=== PATIENT | female | born 1970 | race Caucasian/White ===

== ENCOUNTER 2018-04-08 09:57 | Day surgery (SDC) | payer MEDICARE, OTHER ==
[~2018-04-08] VITALS: Ht 154.9 cm; Wt 46.4 kg
[~2018-04-08 09:57] MED LIST: CeFAZolin 2 GM/DEXTROSE 50 ML IV ONE; GABA-531 PO; LORA0.5T2 PO; PERCT PO; RINGERS SOLUTION,LACTATED 1,000 ML IV ONE
[2018-04-08] MEDS ORDERED: 0.9% SODIUM CHLORIDE 10 ML VIAL IVP ONE (09:58)
[2018-04-08] MEDS ORDERED: ONDANSETRON HCL 4 MG/2 ML VIAL IVP ONE (09:58)
[2018-04-08] MEDS ORDERED: FentaNYL CITRATE-PF 100 MCG/2 ML VIAL IVP ONE (09:58)
[2018-04-08] MEDS ORDERED: DEXAMETHASONE SOD PHOS 4 MG/ML VIAL IVP ONE (09:58)
[2018-04-08] MEDS ORDERED: MIDAZOLAM HCL 2 MG/2 ML VIAL IVP ONE (09:58)
[2018-04-08] MEDS ORDERED: KETAMINE HCL 50 MG/ML 10 ML VIAL IVP ONE (09:58)
[2018-04-08] MEDS ORDERED: LIDOCAINE HCL/PF 2% 5 ML VIAL IM ONE (09:58)
[2018-04-08] MEDS ORDERED: PROPOFOL 1% 20 ML VIAL IVP ONE (09:58)
[2018-04-08] MEDS ORDERED: SUCCINYLCHOLINE CHLORIDE 20 MG/ML 10 ML VIAL IVP ONE (09:58)
[2018-04-08] MEDS ORDERED: BUPIVACAINE HCL/PF 0.5% 30 ML VIAL ONE (10:54)
[2018-04-08] MEDS ORDERED: BUPIVACAINE/EPI/PF 0.5% 30 ML VIAL ONE (10:54)
[2018-04-08] MEDS ORDERED: LIDOCAINE HCL 1%/EPI 1:200,000/PF 30 ML VIAL ONE (10:54)
[2018-04-08] MEDS ORDERED: MEPERIDINE HCL/PF 25 MG/0.5 ML AMP IVP PRN (11:30)
[2018-04-08] MEDS ORDERED: HYDROmorphone 2 MG/ML SYRINGE IVP PRN (11:30)
[2018-04-08] MEDS ORDERED: FentaNYL CITRATE-PF 100 MCG/2 ML VIAL IVP PRN (11:30)
[2018-04-08] MEDS ORDERED: GUM MASTIC/STORAX/MSAL/ALCOHOL LIQUID 0.67 ML VIAL TP ONE (11:31)
[2018-04-08] MEDS ORDERED: OXYGEN THERAPY IH SCH (20:00)
== END 2018-04-08 13:25 | disposition home or self-care (01) ==
LOC: SURGERY 09:57
PROVIDERS: ATTEND Orthopaedic Surgery
DX: M50.122 Cervical disc disorder at C5-C6 level with radiculopathy (principal); F32.9 Major depressive disorder, single episode, unspecified; F41.9 Anxiety disorder, unspecified; B19.20 Unspecified viral hepatitis C without hepatic coma; G89.29 Other chronic pain; E11.9 Type 2 diabetes mellitus without complications; F17.210 Nicotine dependence, cigarettes, uncomplicated; F19.11 Other psychoactive substance abuse, in remission; F10.21 Alcohol dependence, in remission; Z72.89 Other problems related to lifestyle; Z79.891 Long term (current) use of opiate analgesic; Z98.82 Breast implant status; Z96.641 Presence of right artificial hip joint; Z79.899 Other long term (current) drug therapy; Z98.890 Other specified postprocedural states
CPT/HCPCS: 20931; 22600; 22853; C1713; J0330; J0690; J1100; J2250; J2405; J2704; J3010; J3490 ×4; J7120